=== PATIENT | male | born 1980 | race Caucasian/White ===

== ENCOUNTER 2017-07-18 23:55 | Inpatient (IN) | payer OTHER ==
[~2017-07-18] VITALS: Ht 175.3 cm; Wt 64.9 kg
[2017-07-18 23:57] VITALS: BP_SYST 147
[2017-07-19 00:24] LABS: BASOPHILS % (AUTO) 0.5 % (0.0-2.0); EOSINOPHILS % (AUTO) 0.7 % (0.0-4.0); HEMATOCRIT 43.2 % (36-54); HEMOGLOBIN 14.6 g/dL (14.0-18.0); LYMPHOCYTES # (AUTO) 1.1 K/uL (1.0-5.5); LYMPHOCYTES % (AUTO) 19.7 % (20.5-51.5); MEAN CORPUSCULAR HEMOGLOBIN 34 pg (27-31); MEAN CORPUSCULAR HGB CONC 34 % (32-36); MEAN CORPUSCULAR VOLUME 101 fL (79.0-98.0); MONOCYTES # (AUTO) 0.8 K/uL (0.0-1.0); MONOCYTES % (AUTO) 14.2 % (1.7-9.3); NEUTROPHILS # (AUTO) 3.5 K/uL (1.8-7.7); NEUTROPHILS % (AUTO) 64.9 % (40.0-70.0); PLATELET COUNT (AUTO) 182 K/uL (130-430); RED BLOOD CELL COUNT(AUTO) 4.29 MIL/uL (4.2-6.2); RED CELL DISTRIBUTION WIDTH 12.2 % (9.0-15.0); WHITE BLOOD COUNT (AUTO) 5.4 K/uL (4.8-10.8)
[2017-07-19] MEDS ORDERED: NACL 0.9% 1,000 ML IV ONE (00:30)
[2017-07-19 00:31] LABS: CALCIUM 9.5 mg/dL (8.4-11.0); CREATININE 0.97 mg/dL (0.55-1.30); POTASSIUM 3.1 mmol/L (3.5-5.1)
[2017-07-19] MEDS ORDERED: POTASSIUM CHLORIDE 20 MEQ/PKT PACKET PO ONE (00:45)
[2017-07-19 00:49] LABS: TOTAL BILIRUBIN 1.1 mg/dL (0.0-1.0)
[2017-07-19 00:51] LABS: FREE T4 (FREE THYROXINE) 0.9 ng/dL (0.6-1.6); THYROID STIMULATING HORMONE 3.87 uIu/mL (0.34-4.82)
[2017-07-19 01:30] LABS: BILIRUBIN,URINE NEGATIVE (NEGATIVE); BLOOD, URINE NEGATIVE (NEGATIVE); CLARITY/URINE CLEAR (CLEAR); COLOR,URINE YELLOW (YELLOW); GLUCOSE,URINE NEGATIVE (NEGATIVE); KETONES,URINE 1+ (NEGATIVE); LEUKOCYTE ESTERASE ,URINE NEGATIVE (NEGATIVE); NITRITE, URINE NEGATIVE (NEGATIVE); PH,URINE 5.5 (5.0-8.0); PROTEIN URINE NEGATIVE (NEGATIVE); UROBILINOGEN,URINE 0.2 (0.2-1.0)
[2017-07-19 01:41] LABS: BARBITURATE, URINE NEGATIVE (NEG <=200); BENZODIAZEPINE, URINE NEGATIVE (NEG <=150); CANNABINOID, URINE NEGATIVE (NEG <=50); COCAINE, URINE NEGATIVE (NEG <=150); METHAMPHETAMINES SCREEN,URINE NEGATIVE (NEG <=500); OPIATE, URINE NEGATIVE (NEG <=100); PHENCYCLIDINE SCREEN,URINE NEGATIVE (NEG <=25); UR TRICYCLIC ANTIDEPRESSANTS NEGATIVE (NEG <=300); URINE AMPHETAMINE NEGATIVE (NEG <=500); URINE METHADONE NEGATIVE (NEG <=200); URINE OXYCODONE SCREEN NEGATIVE (NEG <=100); URINE PROPOXYPHENE SCREEN NEGATIVE (NEG <=300)
[2017-07-19] MEDS ORDERED: LOSA25TA3 PO (02:33)
[2017-07-19] MEDS ORDERED: LORazepam 2 MG/ML VIAL IVP PRN (03:00)
[2017-07-19 03:17] VITALS: BP_SYST 158
[2017-07-19] MEDS ORDERED: cloNIDine HCL 0.1 MG TABLET PO PRN (05:45)
[2017-07-19 08:26] VITALS: BP_SYST 150
[2017-07-19 09:36] LABS: CREATININE 0.8 mg/dL (0.55-1.30); POTASSIUM 3.8 mmol/L (3.5-5.1)
[2017-07-19 09:41] LABS: ALBUMIN 3.9 g/dL (3.4-4.8); TOTAL BILIRUBIN 1.3 mg/dL (0.0-1.0)
[2017-07-19] MEDS ORDERED: LOSARTAN POTASSIUM 25 MG TABLET PO ONE (10:00)
[2017-07-19] MEDS: THIAMINE HCL 100 MG TABLET PO SCH (10:23)
[2017-07-19] MEDS: FOLIC ACID 1 MG TABLET PO SCH (10:24)
[2017-07-19 12:00] VITALS: BP_SYST 158
[2017-07-19 16:00] VITALS: BP_SYST 135
[2017-07-19 20:53] VITALS: BP_SYST 135
[2017-07-20 00:13] VITALS: BP_SYST 151
[2017-07-20 08:52] VITALS: BP_SYST 138; BP_SYST 146
[2017-07-20] MEDS ORDERED: LOSARTAN POTASSIUM 25 MG TABLET PO SCH (09:00)
[2017-07-20] MEDS: THIAMINE HCL 100 MG TABLET PO SCH (09:51)
[2017-07-20] MEDS: FOLIC ACID 1 MG TABLET PO SCH (09:52)
[2017-07-20 12:51] VITALS: BP_SYST 148
[2017-07-20 13:06] VITALS: BP_SYST 148
== END 2017-07-20 13:25 | disposition home or self-care (01) | DRG 101 ==
LOC: SED 23:55 → STU 07-19 02:52
PROVIDERS: ADMIT Internal Medicine Hospice and Palliative Medicine; ATTEND Internal Medicine Hospice and Palliative Medicine
DX: G40.909 Epilepsy, unspecified, not intractable, without status epilepticus (principal); E87.1 Hypo-osmolality and hyponatremia; I10 Essential (primary) hypertension; E87.6 Hypokalemia; F10.20 Alcohol dependence, uncomplicated
CPT/HCPCS: 36415; 70450-TC; 71045; 80053; 80307; 81003; 83735-TC; 83930-TC; 83935-TC; 84302-TC; 84439; 84443-TC; 84999-TC; 85025; 93005; 95816; 96360; 99285; J2060; J7030

== ENCOUNTER 2017-11-01 13:55 | Inpatient (IN) | payer OTHER ==
[~2017-11-01] VITALS: Ht 175.3 cm; Wt 64.0 kg
[~2017-11-01 13:55] MED LIST: LOSA25TA3 PO
[2017-11-01 14:18] VITALS: BP_SYST 158
[2017-11-01] MEDS ORDERED: LORazepam 2 MG/ML VIAL (FOR ER USE) IVP ONE (14:45)
[2017-11-01] MEDS ORDERED: NACL 0.9% 1,000 ML IV ONE (14:45)
[2017-11-01] MEDS ORDERED: LORazepam 2 MG/ML VIAL IVP ONE ×2 (14:45→17:45)
[2017-11-01 15:01] LABS: CALCIUM 9.3 mg/dL (8.4-11.0); CREATININE 0.91 mg/dL (0.55-1.30); POTASSIUM 3.7 mmol/L (3.5-5.1)
[2017-11-01 15:04] LABS: PROTHROMBIN TIME 9.8 SECS (9.5-12.5)
[2017-11-01 15:05] LABS: ALBUMIN 4.4 g/dL (3.4-4.8)
[2017-11-01 15:31] LABS: CKMB RELATIVE INDEX 0.4 (0.0-2.9); CREATINE KINASE MB 2.9 ng/mL (0-3.6)
[2017-11-01] MEDS ORDERED: ASPIRIN 81 MG TAB.CHEW PO ONE (16:00)
[2017-11-01 16:08] LABS: BASOPHILS % (AUTO) 0.3 % (0.0-2.0); EOSINOPHILS % (AUTO) 0.1 % (0.0-4.0); HEMATOCRIT 45.4 % (36-54); LYMPHOCYTES # (AUTO) 0.5 K/uL (1.0-5.5); LYMPHOCYTES % (AUTO) 5.3 % (20.5-51.5); MEAN CORPUSCULAR HEMOGLOBIN 36 pg (27-31); MEAN CORPUSCULAR HGB CONC 35 % (32-36); MEAN CORPUSCULAR VOLUME 101 fL (79.0-98.0); MONOCYTES % (AUTO) 10.9 % (1.7-9.3); NEUTROPHILS # (AUTO) 7.9 K/uL (1.8-7.7); NEUTROPHILS % (AUTO) 83.4 % (40.0-70.0); PLATELET COUNT (AUTO) 164 K/uL (130-430); RED BLOOD CELL COUNT(AUTO) 4.51 MIL/uL (4.2-6.2); RED CELL DISTRIBUTION WIDTH 11.9 % (9.0-15.0); WHITE BLOOD COUNT (AUTO) 9.4 K/uL (4.8-10.8)
[2017-11-01] MEDS ORDERED: LORazepam 2 MG/ML VIAL (FOR ER USE) ONE (18:07)
[2017-11-01 18:18] VITALS: BP_SYST 141
[2017-11-01] MEDS ORDERED: LORazepam 2 MG/ML VIAL IVP PRN (18:30)
[2017-11-01] MEDS ORDERED: chlordiazePOXIDE HCL 25 MG CAPSULE PO ONE (19:00)
[2017-11-01 19:37] LABS: CHOLESTEROL 177 mg/dL (<200); HDL CHOLESTEROL 105 mg/dL (>45); LDL CHOLESTEROL 53 mg/dL (<100); TRIGLYCERIDES 33 mg/dL (30-150)
[2017-11-01] MEDS: BANANA BAG 1 EA, FOLIC ACID 1 MG, THIAMINE HCL 100 MG, MAGNESIUM SULFATE 1 GM, MVI 10 M... IV SCH ×5 (19:54)
[2017-11-01 20:00] VITALS: BP_SYST 138
[2017-11-01] MEDS: D5NS 1,000 ML IV SCH (23:31)
[2017-11-02] VITALS (7 sets, daily range): BP systolic 133–156
[2017-11-02] MEDS: cloNIDine HCL 0.1 MG TABLET PO PRN (04:17)
[2017-11-02] MEDS: chlordiazePOXIDE HCL 25 MG CAPSULE PO SCH ×3 (09:47→20:28)
[2017-11-02] MEDS: ASPIRIN 81 MG TAB.CHEW PO SCH (09:47)
[2017-11-02] MEDS ORDERED: METOPROLOL TARTRATE 25 MG TABLET PO ONE (10:15)
[2017-11-02] MEDS: D5NS 1,000 ML IV SCH ×2 (11:43→23:00)
[2017-11-02 16:42] LABS: CALCIUM 8.7 mg/dL (8.4-11.0); CREATININE 0.63 mg/dL (0.55-1.30)
[2017-11-02] MEDS: BANANA BAG 1 EA, FOLIC ACID 1 MG, THIAMINE HCL 100 MG, MAGNESIUM SULFATE 1 GM, MVI 10 M... IV SCH ×10 (19:00→21:44)
[2017-11-02] MEDS: METOPROLOL TARTRATE 25 MG TABLET PO SCH (20:29)
[2017-11-03] VITALS: BP_SYST 145
[2017-11-03] MEDS: cloNIDine HCL 0.1 MG TABLET PO PRN (00:30)
[2017-11-03 01:04] VITALS: BP_SYST 145
[2017-11-03 01:30] VITALS: BP_SYST 126
[2017-11-03] MEDS: D5NS 1,000 ML IV SCH (01:56)
[2017-11-03 06:55] LABS: HEMATOCRIT 38.9 % (36-54); HEMOGLOBIN 13.6 g/dL (14.0-18.0); MEAN CORPUSCULAR HEMOGLOBIN 36 pg (27-31); MEAN CORPUSCULAR HGB CONC 35 % (32-36); MEAN CORPUSCULAR VOLUME 102 fL (79.0-98.0); PLATELET COUNT (AUTO) 156 K/uL (130-430); RED BLOOD CELL COUNT(AUTO) 3.82 MIL/uL (4.2-6.2); RED CELL DISTRIBUTION WIDTH 11.5 % (9.0-15.0)
[2017-11-03 07:13] LABS: ALBUMIN 3.3 g/dL (3.4-4.8); CALCIUM 8.8 mg/dL (8.4-11.0); CREATININE 0.74 mg/dL (0.55-1.30); PHOSPHORUS 2.4 mg/dL (2.7-4.5); POTASSIUM 4.8 mmol/L (3.5-5.1); TOTAL BILIRUBIN 0.6 mg/dL (0.0-1.0)
[2017-11-03 07:31] LABS: WHITE BLOOD COUNT (AUTO) 4.9 K/uL (4.8-10.8)
[2017-11-03 08:10] VITALS: BP_SYST 152
[2017-11-03] MEDS: chlordiazePOXIDE HCL 25 MG CAPSULE PO SCH (09:51)
[2017-11-03] MEDS: ASPIRIN 81 MG TAB.CHEW PO SCH (09:51)
[2017-11-03] MEDS: METOPROLOL TARTRATE 25 MG TABLET PO SCH (09:51)
[2017-11-03 11:24] VITALS: BP_SYST 135
[2017-11-03 11:47] LABS: ATYPICAL LYMPHOCYTES % 0 % (0-0); BAND % (MANUAL) 0 % (0-6); BASOPHILS % (MANUAL) 0 % (0-2); EOSINOPHILS % (MANUAL) 0 % (0-7); LYMPHOCYTES % (MANUAL) 19 % (20-46); MONOCYTES % (MANUAL) 20 % (0-11)
== END 2017-11-03 12:00 | disposition home or self-care (01) | DRG 101 ==
LOC: SED 13:55 → STU 17:45
PROVIDERS: ADMIT Internal Medicine Hospice and Palliative Medicine; ATTEND Internal Medicine Hospice and Palliative Medicine
DX: R56.9 Unspecified convulsions (principal); E87.1 Hypo-osmolality and hyponatremia; I24.8 Other forms of acute ischemic heart disease; F10.239 Alcohol dependence with withdrawal, unspecified; I10 Essential (primary) hypertension; R00.0 Tachycardia, unspecified
CPT/HCPCS: 36415; 70450-TC; 70551; 80048; 80053; 80061; 82550-TC; 82553-TC; 83735-TC; 84100-TC; 84484; 85007; 85025; 85027; 85610-TC; 85730-TC; 93005; 93306; 95816; 96361; 96374; 96376; 99285; G0482; J2060; J3411; J3475; J3490; J7030; J7042

== ENCOUNTER 2019-02-15 16:09 | Inpatient (IN) | payer OTHER ==
[~2019-02-15] VITALS: Ht 175.3 cm; Wt 67.1 kg
[2019-02-15 16:12] VITALS: BP_SYST 143
[2019-02-15] MEDS ORDERED: LORazepam 2 MG/ML VIAL IVP ONE (16:15)
[2019-02-15] MEDS ORDERED: NACL 0.9% 2,000 ML IV ONE (16:15)
[2019-02-15] MEDS ORDERED: PHENYTOIN SODIUM INJ 1,000 MG in NS 100 ML IV ONE (16:30)
[2019-02-15 16:39] LABS: BASOPHILS % (AUTO) 0.3 % (0.0-2.0); EOSINOPHILS % (AUTO) 0.4 % (0.0-4.0); HEMATOCRIT 41.6 % (36-54); HEMOGLOBIN 14.4 g/dL (14.0-18.0); LYMPHOCYTES % (AUTO) 19.5 % (20.5-51.5); MEAN CORPUSCULAR HEMOGLOBIN 35 pg (27-31); MEAN CORPUSCULAR HGB CONC 35 % (32-36); MEAN CORPUSCULAR VOLUME 100 fL (79.0-98.0); MONOCYTES # (AUTO) 0.6 K/uL (0.0-1.0); MONOCYTES % (AUTO) 10.7 % (1.7-9.3); NEUTROPHILS # (AUTO) 3.7 K/uL (1.8-7.7); NEUTROPHILS % (AUTO) 69.1 % (40.0-70.0); PLATELET COUNT (AUTO) 193 K/uL (130-430); RED BLOOD CELL COUNT(AUTO) 4.14 MIL/uL (4.2-6.2); RED CELL DISTRIBUTION WIDTH 13.8 % (9.0-15.0); WHITE BLOOD COUNT (AUTO) 5.3 K/uL (4.8-10.8)
[2019-02-15] MEDS ORDERED: PHENYTOIN SODIUM 250 MG/5 ML INJ. VIAL IV ONE (16:53)
[2019-02-15 16:54] LABS: CALCIUM 9.1 mg/dL (8.4-11.0); CREATININE 1.12 mg/dL (0.55-1.30); POTASSIUM 3.4 mmol/L (3.5-5.1)
[2019-02-15 17:05] LABS: PROTHROMBIN TIME 9.9 SECS (9.5-12.5)
[2019-02-15 17:10] LABS: TOTAL BILIRUBIN 1.1 mg/dL (0.0-1.0)
[2019-02-15] MEDS ORDERED: ASPIRIN 81 MG TAB.CHEW PO ONE (17:30)
[2019-02-15] MEDS ORDERED: LACTULOSE 20 GM/30 ML UDC PO ONE (17:30)
[2019-02-15 17:36] LABS: BILIRUBIN,URINE NEGATIVE (NEGATIVE); BLOOD, URINE NEGATIVE (NEGATIVE); CLARITY/URINE CLEAR (CLEAR); COLOR,URINE YELLOW (YELLOW); GLUCOSE,URINE NEGATIVE (NEGATIVE); KETONES,URINE 1+ (NEGATIVE); LEUKOCYTE ESTERASE ,URINE NEGATIVE (NEGATIVE); NITRITE, URINE NEGATIVE (NEGATIVE); PH,URINE 7.5 (5.0-8.0); PROTEIN URINE NEGATIVE (NEGATIVE); UROBILINOGEN,URINE 0.2 (0.2-1.0)
[2019-02-15] MEDS ORDERED: CORCR10 PO (17:45)
[2019-02-15] MEDS ORDERED: LOSA1TAB9 PO (17:45)
[2019-02-15 17:55] LABS: BARBITURATE, URINE NEGATIVE (NEG <=200); BENZODIAZEPINE, URINE NEGATIVE (NEG <=150); CANNABINOID, URINE NEGATIVE (NEG <=50); COCAINE, URINE NEGATIVE (NEG <=150); METHAMPHETAMINES SCREEN,URINE NEGATIVE (NEG <=500); OPIATE, URINE NEGATIVE (NEG <=100); PHENCYCLIDINE SCREEN,URINE NEGATIVE (NEG <=25); UR TRICYCLIC ANTIDEPRESSANTS NEGATIVE (NEG <=300); URINE AMPHETAMINE NEGATIVE (NEG <=500); URINE METHADONE NEGATIVE (NEG <=200); URINE OXYCODONE SCREEN NEGATIVE (NEG <=100); URINE PROPOXYPHENE SCREEN NEGATIVE (NEG <=300)
[2019-02-15 18:15] VITALS: BP_SYST 155
[2019-02-15] MEDS: D5NS 1,000 ML IV SCH (18:29)
[2019-02-15] MEDS ORDERED: ACETAMINOPHEN 325 MG TABLET PO PRN ×2 (19:00)
[2019-02-15] MEDS ORDERED: LOSARTAN/HYDROCHLOROTHIAZIDE TAB (HYZAAR 50-12.5 MG) PO SCH (19:00)
[2019-02-15] MEDS ORDERED: DOCUSATE SODIUM 100 MG CAPSULE PO PRN (19:00)
[2019-02-15] MEDS ORDERED: NITROGLYCERIN 0.4 MG TAB.SUBL SL PRN (19:00)
[2019-02-15] MEDS ORDERED: LORazepam 2 MG/ML VIAL IVP PRN ×2 (19:00)
[2019-02-15] MEDS ORDERED: ONDANSETRON HCL 4 MG/2 ML VIAL IVP PRN (19:00)
[2019-02-15] MEDS ORDERED: MUPIROCIN 2% TOPICAL OINTMENT 22 GM NS PRN (19:00)
[2019-02-15] MEDS ORDERED: ZOLPIDEM TARTRATE 5 MG TABLET PO PRN (19:00)
[2019-02-15] MEDS ORDERED: HEPARIN SODIUM,PORCINE 5000 UNITS/ML VIAL SUBCUT SCH (19:00)
[2019-02-15] MEDS ORDERED: MAGNESIUM SULFATE 50 ML IV PRN (19:00)
[2019-02-15] MEDS ORDERED: MORPHINE 2 MG/ML INJ. SYRINGE IVP PRN ×3 (19:00)
[2019-02-15 20:00] VITALS: BP_SYST 145
[2019-02-15] MEDS: LACTULOSE 20 GM/30 ML UDC PO SCH (20:37)
[2019-02-15] MEDS: chlordiazePOXIDE HCL 25 MG CAPSULE PO SCH (20:38)
[2019-02-15] MEDS: POTASSIUM CHLORIDE 20 MEQ TAB.PRT.SR PO PRN (20:38)
[2019-02-15] MEDS: METOPROLOL TARTRATE 25 MG TABLET PO SCH (20:40)
[2019-02-15] MEDS: ZOLPIDEM TARTRATE 5 MG TABLET PO PRN (23:04)
[2019-02-16 01:00] VITALS: BP_SYST 130
[2019-02-16] MEDS: D5NS 1,000 ML IV SCH ×3 (02:26→18:07)
[2019-02-16 05:28] LABS: BASOPHILS % (AUTO) 0.4 % (0.0-2.0); EOSINOPHILS % (AUTO) 0.4 % (0.0-4.0); HEMATOCRIT 35.8 % (36-54); HEMOGLOBIN 12.6 g/dL (14.0-18.0); LYMPHOCYTES # (AUTO) 0.9 K/uL (1.0-5.5); LYMPHOCYTES % (AUTO) 18.8 % (20.5-51.5); MEAN CORPUSCULAR HEMOGLOBIN 36 pg (27-31); MEAN CORPUSCULAR HGB CONC 35 % (32-36); MEAN CORPUSCULAR VOLUME 100 fL (79.0-98.0); MONOCYTES # (AUTO) 0.9 K/uL (0.0-1.0); MONOCYTES % (AUTO) 17.6 % (1.7-9.3); NEUTROPHILS # (AUTO) 3.2 K/uL (1.8-7.7); NEUTROPHILS % (AUTO) 62.8 % (40.0-70.0); PLATELET COUNT (AUTO) 166 K/uL (130-430); RED BLOOD CELL COUNT(AUTO) 3.56 MIL/uL (4.2-6.2); RED CELL DISTRIBUTION WIDTH 13.7 % (9.0-15.0)
[2019-02-16 06:20] LABS: CALCIUM 8.5 mg/dL (8.4-11.0); CREATININE 0.74 mg/dL (0.55-1.30); POTASSIUM 3.3 mmol/L (3.5-5.1)
[2019-02-16 07:45] VITALS: BP_SYST 145
[2019-02-16 08:00] VITALS: BP_SYST 145
[2019-02-16] MEDS ORDERED: FOLIC ACID 1 MG, THIAMINE HCL 100 MG, MAGNESIUM SULFATE 1 GM, MVI 10 ML in NACL 0.9% 1,... IV ONE (08:00)
[2019-02-16] MEDS ORDERED: HYDROCHLOROTHIAZIDE 12.5 MG CAPSULE (HCTZ) PO SCH (09:00)
[2019-02-16] MEDS: chlordiazePOXIDE HCL 25 MG CAPSULE PO SCH ×3 (09:39→21:59)
[2019-02-16] MEDS: LOSARTAN POTASSIUM 50 MG TABLET (COZAAR) PO SCH (09:39)
[2019-02-16] MEDS: METOPROLOL TARTRATE 25 MG TABLET PO SCH ×2 (09:40→22:00)
[2019-02-16] MEDS: ATORVASTATIN 20 MG TABLET PO SCH (09:40)
[2019-02-16] MEDS: ASPIRIN 81 MG TAB.CHEW PO SCH (09:42)
[2019-02-16] MEDS: CLOPIDOGREL BISULFATE 75 MG TABLET PO SCH (09:42)
[2019-02-16] MEDS: LACTULOSE 20 GM/30 ML UDC PO SCH ×2 (09:42→21:59)
[2019-02-16] MEDS: POTASSIUM CHLORIDE 20 MEQ TAB.PRT.SR PO PRN (09:50)
[2019-02-16 12:40] VITALS: BP_SYST 130
[2019-02-16 16:34] VITALS: BP_SYST 147
[2019-02-16 20:20] VITALS: BP_SYST 137
[2019-02-16] MEDS: ZOLPIDEM TARTRATE 5 MG TABLET PO PRN (22:06)
[2019-02-17 00:02] VITALS: BP_SYST 138
[2019-02-17] MEDS: D5NS 1,000 ML IV SCH ×2 (01:04→10:33)
[2019-02-17 08:00] VITALS: BP_SYST 143
[2019-02-17] MEDS: LACTULOSE 20 GM/30 ML UDC PO SCH (08:22)
[2019-02-17] MEDS: ATORVASTATIN 20 MG TABLET PO SCH (08:22)
[2019-02-17] MEDS: ASPIRIN 81 MG TAB.CHEW PO SCH (08:23)
[2019-02-17] MEDS: chlordiazePOXIDE HCL 25 MG CAPSULE PO SCH ×2 (08:23→13:49)
[2019-02-17] MEDS: CLOPIDOGREL BISULFATE 75 MG TABLET PO SCH (08:23)
[2019-02-17] MEDS: LOSARTAN POTASSIUM 50 MG TABLET (COZAAR) PO SCH (08:24)
[2019-02-17] MEDS: METOPROLOL TARTRATE 25 MG TABLET PO SCH (08:25)
[2019-02-17] MEDS ORDERED: cloNIDine HCL 0.1 MG TABLET PO PRN (08:30)
[2019-02-17] MEDS ORDERED: HYDROCHLOROTHIAZIDE 25 MG TABLET (HCTZ) PO SCH (09:00)
[2019-02-17 12:00] VITALS: BP_SYST 132; BP_SYST 143
== END 2019-02-17 14:00 | disposition home or self-care (01) | DRG 100 ==
LOC: SED 16:09 → STU 17:48
PROVIDERS: ADMIT General Practice; ATTEND General Practice
DX: G40.509 Epileptic seizures related to external causes, not intractable, without status epilepticus (principal); I21.A1 Myocardial infarction type 2; F10.239 Alcohol dependence with withdrawal, unspecified; E72.20 Disorder of urea cycle metabolism, unspecified; I10 Essential (primary) hypertension; K72.90 Hepatic failure, unspecified without coma; Z79.899 Other long term (current) drug therapy
CPT/HCPCS: 36415; 71045; 76700-TC; 80048; 80053; 80061; 80307; 81003; 82140-TC; 83036; 83735-TC; 83880; 84439; 84484; 85025; 85610-TC; 93005; 96361; 96365; 96375; 99285; G0378; G0482; J1165; J1644; J2060; J3411; J3475; J3490; J7030; J7042

== ENCOUNTER 2020-11-12 20:18 | Emergency (ER) | payer OTHER ==
[~2020-11-12] VITALS: Ht 172.7 cm; Wt 68.0 kg
[~2020-11-12 20:18] MED LIST changes: +CORCR10 PO; +LOSA1TAB9 PO; -LOSA25TA3 PO
[2020-11-12 20:35] VITALS: BP_SYST 148
== END 2020-11-12 21:07 | disposition left against medical advice (07) ==
LOC: SED 20:18
DX: R04.2 Hemoptysis (principal); Z53.21 Procedure and treatment not carried out due to patient leaving prior to being seen by health care provider